=== PATIENT | male | born 1990 | race African-American/Black ===

== ENCOUNTER 2017-08-23 13:05 | Day surgery (SDC) | payer BC ==
[~2017-08-23 13:05] MED LIST: BACT800T5 PO; CEPH500C3 PO
[2017-08-23] MEDS ORDERED: IOHEXOL 350 MG/ML 50 ML BTL (for RAD DIAG) OTHER ONE (13:06)
[2017-08-23 13:35] VITALS: BP 131/76; PULSE 79; RESP 20; TEMP 98.3; O2SAT 99
[2017-08-23] MEDS ORDERED: MYCO500 PO (13:35)
[2017-08-23] MEDS ORDERED: BACT400T PO (13:35)
[2017-08-23] MEDS ORDERED: DILT120T PO (13:35)
[2017-08-23] MEDS ORDERED: LISI-519 PO (13:35)
[2017-08-23] MEDS ORDERED: VITATAB25 PO (13:35)
--- NOTE | 2017-08-23 14:14 | PD.RAD ---
Radiology Note Infusaport evaluated. The port tubing is in the distal subclavian vein at the junction with the SVC. The port flushes and aspirates normally. Port is OK for use Tyrell Negro MD Aug 23, 2017 14:14
[2017-08-23 14:15] VITALS: BP 142/72; PULSE 80; RESP 18; O2SAT 99
--- NOTE | 2017-08-23 14:44 | RADRPT ---
EXAM DATE/TIME: 08/23/2017 13:04 [place] COMPARISON: No previous studies available for comparison. INDICATIONS : Patient presents with immunodeficiency disorder in need of port patency injection for evaluation. 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 Access of [id number]. 2. Port patency injection. The risks, benefits and alternatives to the procedure were explained and verbal and written consent w as obtained. The patient was placed supine. The port was prepped in sterile fashion. Full sterile t echnique was used, including cap, mask, sterile gloves and gown, and a large sterile sheet. Hand hyg iene and 2% chlorhexidine prep was utilized per protocol for cutaneous antisepsis with appropriate dr y time for site. The previously placed port was accessed and positive contrast was injected for evaluation. Injection demonstrates the catheter tip to be at the junction of the left innominate vein and the SVC. The cat heter is clearly intravascular. The catheter flushed and aspirated normally. CONCLUSION: 1. The port is in acceptable position. It flushed and aspirated normally. Tyrell Negro MD on August 23, 2017 at 14:42 Board Certified Radiologist. This report was verified electronically.
== END 2017-08-23 14:30 | disposition home or self-care (01) ==
LOC: HROP 13:05 → HRIP 13:07 → HROP 14:30
PROVIDERS: ATTEND Surgery
DX: T85.698A Other mechanical complication of other specified internal prosthetic devices, implants and grafts, initial encounter (principal); J84.9 Interstitial pulmonary disease, unspecified
CPT/HCPCS: 36598; J1642; Q9967